=== PATIENT | male | born 1990 | race Two or more races ===

== ENCOUNTER 2024-10-13 13:32 | Emergency (ER) | payer BC, OTHER ==
[~2024-10-13] VITALS: Ht 185.4 cm; Wt 110.0 kg
[2024-10-13 13:47] VITALS: BP 154/100; PULSE 78; RESP 15; O2SAT 98
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
[2024-10-13 14:14] LABS: Basophils # (auto) 0.1 10 ^3/uL (0-0.2); Basophils % (auto) 1.1 % (0.0-2.0); Eosinophils # (auto) 0.3 10 ^3/uL (0-0.8); Eosinophils % (auto) 2.9 % (0.0-7.0); Hemoglobin 17.5 g/dL (13.5-17.5); Lymphocytes # (auto) 1.7 10 ^3/uL (0.4-5.4); Mean Corpuscular Hemoglobin 31.4 pg (28.0-32.0); Mean Corpuscular Volume 89.8 fL (80.0-100.0); Monocytes # (auto) 0.7 10 ^3/uL (0-1.3); Monocytes % (auto) 7.3 % (0.0-12.0); Neutrophils # (auto) 6.7 10 ^3/uL (1.6-8.6); Neutrophils % (auto) 70.7 % (37.0-80.0); Nucleated Red Blood Cells % 0.1 %; Platelet Count (auto) 347 10^3/uL (140-450); Red Blood Cells 5.56 10^6/uL (4.5-5.90); Red Cell Distribution Width 12.9 % (11.8-14.3); White Blood Cell 9.5 10^3/uL (4.4-10.8)
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
[2024-10-13 14:33] LABS: Carbon Dioxide 27 mmol/L (20-31)
[2024-10-13 14:34] LABS: Calcium 10.2 mg/dL (8.7-10.4)
[2024-10-13 15:18] LABS: Anion Gap 9 (5-15); Blood Urea Nitrogen 26 mg/dL (9-23); Chloride 94 mmol/L (98-107); Potassium 5.3 mmol/L (3.5-5.1); Sodium 130 mmol/L (136-145)
[2024-10-13 15:20] LABS: Glucose 489 mg/dL (74-106)
[2024-10-13] MEDS: ONDANSETRON HCL 4 MG/2 ML VIAL IV ONE (15:23)
[2024-10-13] MEDS: SODIUM CHLORIDE 0.9% 1,000 ML IV ONE (15:23)
[2024-10-13] MEDS: MORPHINE SULFATE 4 MG/ML SYR/VIAL IV ONE (15:23)
== END 2024-10-13 15:52 | disposition left against medical advice (07) ==
LOC: EDBD 13:32 → ER 13:32
DX: R07.89 Other chest pain (principal); V43.62XA Car passenger injured in collision with other type car in traffic accident, initial encounter; Y93.I9 Activity, other involving external motion; Y92.488 Other paved roadways as the place of occurrence of the external cause; Y99.8 Other external cause status
CPT/HCPCS: 36415; 71045; 80048; 85025; 96360; 99284; J7030

== ENCOUNTER 2025-02-10 19:14 | Inpatient (IN) | payer BC, MEDICAID, OTHER ==
[~2025-02-10] VITALS: Ht 185.4 cm; Wt 127.0 kg
--- NOTE | 2025-02-10 19:56 | ED.PDOC ---
General HPI Comments 34y M who presents to the ED for chief complaint of genitourinary pain. Pt states over the past 2 days, he has been having pain and swelling by the head of his penis.Pt denies any associated dysuria or penile discharge. Pt states he is otherwise diabetic and states he has not been taking his DM medications for many years. Pt otherwise denies any associated symptoms. Time Seen by MD: 19:54 Reviewed notes: Medications, Allergies Allergies: Coded Allergies: NO KNOWN ALLERGIES (Unverified , 10/13/24) Information Source: Patient Mode of Arrival: Ambulatory Past Medical History PAST MEDICAL HISTORY: DM Surgical History: Denies all surgeries Family History Family History: Unknown Social History Smoker: Non-Smoker Alcohol: Denies ETOH Use Drugs: Denies Drug Use Lives In: Home Constitutional: denies: chills, diaphoresis, fatigue, fever, malaise, sweats, weakness, others EENTM: denies: blurred vision, double vision, ear bleeding, ear discharge, ear drainage, ear pain, ear ringing, eye pain, eye redness, hearing loss, mouth pain, mouth swelling, nasal discharge, nose bleeding, nose congestion, nose pain, photophobia, tearing, throat pain, throat swelling, voice changes, others Respiratory: denies: cough, hemoptysis, orthopnea, SOB at rest, shortness of breath, SOB with excertion, stridor, wheezing, others Cardiovascular: denies: chest pain, dizzy spells, diaphoresis, Dyspnea on exertion, edema, irregular heart beat, left arm pain, lightheadedness, palpi tations, PND, syncope, others Gastrointestinal: denies: abdomen distended, abdominal pain, blood streaked bowels, constipated, diarrhea, dysphagia, difficulty swallowing, hematemesis, melena, nausea, poor appetite, poor fluid intake, rectal bleeding, rectal pain, vomiting, others Genitourinary: reports: pain (penile pain); denies: burning, dysuria, flank pain, frequency, hematuria, incontinence, penile discharge, penile sore, testicle pain, testicle swelling, urgency, others Neurological: denies: dizziness, fainting, headache, left sided numbness, left sided weakness, numbness, paresthesia, pre-existing deficit, right sided numbness, right sided weakness, seizure, speech problems, tingling, tremors, weakness, others Musculoskeletal: denies: back pain, gout, joint pain, joint swelling, muscle pain, muscle stiffness, neck pain, others Integumetry: denies: bruises, change in color, change in hair/nails, dryness, laceration, lesions, lumps, rash, wounds, others Allergic/Immunocompromised: denies: Difficulty Healing, Frequent Infections, Hives, Itching, others Hematologic/Lymphatic: denies: anemia, blood clots, easy bleeding, easy bruising, swollen glands, others Endocrine: denies: excessive hunger, excessive sweating, excessive thirst, excessive urination, flushing, intolerance to cold, intolerance to heat, unexplained weight gain, unexplained weight loss, others Psychiatric: denies: anxiety, bipolar disorder, depression, hopeless, panic disorder, schizophrenia, sleepless, suicidal, others All Other Systems: Reviewed and Negative Physical Exam General Appearance: Mild Distress HEENT: Pharynx Normal Neck: Normal Inspection Respiratory: No Respiratory Distress Cardiovascular: Tachycardia Breast Exam: Deferred Gastrointestinal: No Organomegaly Genitalia: Other (Whitish discharge around the glans penis) Pelvic: Deferred Rectal: Deferred Extremities: Non-tender Neurologic: No Motor Deficits Cerebellar Function: NOT DONE Reflexes: NOT DONE Skin: Pallor Lymphatic: NOT DONE Was a procedure done? Was a procedure done?: No Differential Diagnosis Kidney stone (Female): N/A Penile/Scrotal: Epidiymitis, Prostatitis, STD, UTI, Other (cellulitis, ) X-Ray, Labs, Meds, VS Lab Test 02/10/25 20:08 02/10/25 19:52 02/10/25 19:43 Range/Units Urine Color Light-yellow Yellow Urine Clarity Clear Clear Urine pH 6.0 5.0-9.0 Urine Specific Lamar 1.026 1.001-1.035 Urine Protein 1+ H Negative Urine Ketones Trace Negative Urine Blood 1+ H Negative /uL Urine Nitrite Negative Negative Urine Bilirubin Negative Negative Urine Urobilinogen Normal Negative mg/dL Urine Leukocyte Esterase 3+ Negative /uL Urine RBC 31 0 - 3 /hpf Urine Microscopic WBC 63 H 0-3 /HPF Urine Squamous Epithelial Cells Few <5 /hpf Urine Bacteria None seen None Seen /hpf Urine Yeast (Budding) Occasional None Seen /hpf Urine Glucose 4+ H Normal mg/dL Chlamydia trachomatis (DERRICK) Pending Neisseria gonorrhoeae (DERRICK) Pending White Blood Count 9.4 4.4-10.8 10^3/uL Red Blood Count 5.42 4.5-5.90 10^6/uL Hemoglobin 17.2 13.5-17.5 g/dL Hematocrit 48.3 41.0-53.0 % Mean Corpuscular Volume 89.1 80.0-100.0 fL Mean Corpuscular Hemoglobin 31.7 28.0-32.0 pg Mean Corpuscular Hemoglobin Concent 35.6 32.0-36.0 g/dL Red Cell Distribution Width 12.0 11.8-14.3 % Platelet Count 322 140-450 10^3/uL Mean Platelet Volume 6.4 L 6.9-10.8 fL Neutrophils (%) (Auto) 68.3 37.0-80.0 % Lymphocytes (%) (Auto) 19.3 10.0-50.0 % Monocytes (%) (Auto) 10.2 0.0-12.0 % Eosinophils (%) (Auto) 0.9 0.0-7.0 % Basophils (%) (Auto) 1.3 0.0-2.0 % Neutrophils # (Auto) 6.4 1.6-8.6 10 ^3/uL Lymphocytes # (Auto) 1.8 0.4-5.4 10 ^3/uL Monocytes # (Auto) 1.0 0-1.3 10 ^3/uL Eosinophils # (Auto) 0.1 0-0.8 10 ^3/uL Basophils # (Auto) 0.1 0-0.2 10 ^3/uL Nucleated Red Blood Cells 0.5 % Sodium Level 130 L 136-145 mmol/L Potassium Level 4.4 3.5-5.1 mmol/L Chloride Level 96 L 98-107 mmol/L Carbon Dioxide Level 24 20-31 mmol/L Anion Gap 10 5-15 Blood Urea Nitrogen 16 9-23 mg/dL Creatinine 1.28 0.700-1.30 mg/dL Glomerular Filtration Rate Calc 76 >90 mL/min BUN/Creatinine Ratio 12.5 10.0-20.0 Serum Glucose 416 *H 74-106 mg/dL Calcium Level 10.4 8.7-10.4 mg/dL POC Glucose 396 H 70-106 mg/dl Current Medications Medications (Trade) Dose Ordered Sig/Tashi Route Start Time Stop Time Status Last Admin Acetaminophen/ Hydrocodone Bitart (K[place] 5/325MG Tab) 1 tab ONCE ONCE PO 02/10/25 20:00 02/10/25 20:01 DC 02/10/25 20:48 Clotrimazole (Lotrimin 1% Cream) 1 applic ONCE ONCE TOP 02/10/25 20:00 02/10/25 20:01 DC 02/10/25 20:48 Time of 1ST Reevaluation: 20:30 Reevaluation 1ST: Unchanged Patient Education/Counseling: Diagnosis, Treatment Family Education/Counseling: No Family Present Departure 1 Departure Time of Disposition: 20:54 (Patient with a uncontrolled diabetes and balanitis. We will admit patient to the hospital further workup and expert consultation) Impression: Primary Impression: Uncontrolled diabetes mellitus Qualified Codes: E11.65 - Type 2 diabetes mellitus with hyperglycemia Additional Impression: Balanitis Disposition: ADMITTED INPATIENT Admit to: Med Surg Condition: Serious Critical Care Note Critical Care Time?: No Stability Stability form required: No Heart Score Heart Score: Heart Score Response (Comments) Value History N/A 0 EKG N/A 0 Age N/A 0 Risk Factors N/A 0 Troponin N/A 0 Total 0 I personally scribed for JADA SOLIZ MD ([email or web address]) on 02/10/25 at 19:56. Electronically submitted by Loly Cline ([email or web address]). JADA SOLIZ MD Feb 10, 2025 19:56
[2025-02-10 20:06] LABS: Basophils # (auto) 0.1 10 ^3/uL (0-0.2); Basophils % (auto) 1.3 % (0.0-2.0); Eosinophils # (auto) 0.1 10 ^3/uL (0-0.8); Eosinophils % (auto) 0.9 % (0.0-7.0); Hematocrit 48.3 % (41.0-53.0); Hemoglobin 17.2 g/dL (13.5-17.5); Lymphocytes # (auto) 1.8 10 ^3/uL (0.4-5.4); Lymphocytes % (auto) 19.3 % (10.0-50.0); Mean Corpuscular Hemoglobin 31.7 pg (28.0-32.0); Mean Corpuscular Hgb Conc. 35.6 g/dL (32.0-36.0); Mean Corpuscular Volume 89.1 fL (80.0-100.0); Monocytes % (auto) 10.2 % (0.0-12.0); Neutrophils # (auto) 6.4 10 ^3/uL (1.6-8.6); Neutrophils % (auto) 68.3 % (37.0-80.0); Nucleated Red Blood Cells % 0.5 %; Platelet Count (auto) 322 10^3/uL (140-450); Red Blood Cells 5.42 10^6/uL (4.5-5.90); White Blood Cell 9.4 10^3/uL (4.4-10.8)
[2025-02-10 20:10] LABS: Urine Bacteria None Seen /hpf (None Seen)
[2025-02-10 20:13] LABS: Potassium 4.4 mmol/L (3.5-5.1)
[2025-02-10 20:14] LABS: Anion Gap 10 (5-15); Carbon Dioxide 24 mmol/L (20-31)
[2025-02-10 20:15] LABS: Sodium 130 mmol/L (136-145)
[2025-02-10 20:16] LABS: Calcium 10.4 mg/dL (8.7-10.4); Chloride 96 mmol/L (98-107)
[2025-02-10 20:19] LABS: BUN/Creatinine Ratio 12.5 (10.0-20.0); Blood Urea Nitrogen 16 mg/dL (9-23)
[2025-02-10 20:23] LABS: Glucose 416 mg/dL (74-106)
[2025-02-10 20:24] LABS: Urine Blood 1+ /uL (Negative); Urine Budding Yeast OCCASIONAL /hpf (None Seen); Urine Clarity Clear (Clear); Urine Color Light-Yellow (Yellow); Urine Protein, UAD 1+ (Negative); Urine Specific Gravity 1.026 (1.001-1.035); Urine Squamous Epithelial Cell FEW /hpf (<5); Urine Urobilinogen Normal (Negative); Urine WBC 63 /HPF (0-3)
[2025-02-10] MEDS: HYDROcodone-ACET 5/325MG TAB PO ONE (20:48)
[2025-02-10] MEDS: CLOTRIMAZOLE 1 % CREAM 15GM TOP ONE (20:48)
[2025-02-10] MEDS: SODIUM CHLORIDE 0.9% 1,000 ML IV ONE ×2 (21:11→22:57)
[2025-02-10] MEDS ORDERED: CLINDAMYCIN 600MG IV 50 ML IV ONE (22:45)
[2025-02-10] MEDS ORDERED: PIPERACILLIN-TAZOB 3.375GM 100 ML IV ONE (22:45)
[2025-02-10] MEDS: INSULIN LANTUS (GLARGINE) 1 /0.01ml (100units/ml) SC ONE (23:02)
--- NOTE | 2025-02-10 23:05 | DVH ---
SCROTAL ULTRASOUND REASON FOR EXAM: epididmyitis, torison. Penile pain. COMPARISON: None TECHNIQUE: Real-time sector scans and duplex color flow Doppler imaging of the scrotal contents was performed. FINDINGS: The right testicle measures 3.1 x 2.0 x 2.5 cm. The left testicle measures 3.4 x 1.7 x 2.1 cm. No testicular mass is identified. Flow was seen within the right and left testicle. There is no hypere jaycob. There is no evidence of hydrocele nor varicocele identified. The left epididymis is of normal size, shape and contour. The right epididymis is not seen. IMPRESSION: Normal appearance of both testes. No evidence of torsion. The right epididymis is not seen.
[2025-02-10] MEDS: DOXYCYCLINE 100 MG TAB/CAP PO ONE (23:08)
[2025-02-10] MEDS: cefTRIAXone 1GM/50ML D5W 50 ML IV ONE (23:13)
--- NOTE | 2025-02-10 23:44 | DVH ---
History: scrotal swelling, bhumika gangrene Comparison Study: None Technique: Multidetector spiral CT of the pelvis was performed from iliac crests to pubic symphysis. No intravenous contrast was administered. Axial, coronal and sagittal multiplanar reformats were pe rformed by the technologist on a separate workstation. Radiation Dose : CT Dose: CTDI volume is 37 mGy. Dose-length product is 1819 mGy*cm Findings: Visualized bowel: Small bowel and colon are normal in caliber and distribution. The appendix is not visualized; however, no secondary findings of acute appendicitis identified. Ascites: Absent Lymphadenopathy: No pelvic or mesenteric lymphadenopathy is identified by size criteria. There are s ubcentimeter lymph nodes bilaterally in the pelvis. There are more prominent lymph nodes in both groi ns, the largest measuring 1.6 cm in short axis in the left groin. Pelvis Wall and Mesentery: Unremarkable. Pelvic Organs: Unremarkable Musculoskeletal: No aggressive focal bony lesions, acute fractures or dislocation. Bladder: Unremarkable Other: No gas is identified within the soft tissues of the groin. No fluid collection is identified. IMPRESSION: No fluid collection or free air in the pelvis or in the soft tissues. No CT evidence for Bhumika's gangrene. Mildly prominent lymph nodes in the groin and pelvis, likely reactive.
[2025-02-11] VITALS (7 sets, daily range): BP systolic 136–145; BP diastolic 87–97; PULSE 83–95; RESP 14–20; TEMP 97.7–97.8; O2SAT 92–99
[2025-02-11] MEDS: HYDROcodone-ACET 5/325MG TAB PO PRN (01:51)
[2025-02-11] MEDS ORDERED: DEXTROSE (50%) 50ML SYRG IV PRN (02:45)
--- NOTE | 2025-02-11 04:03 | DVHPNRES ---
Progress Note Date Seen: Feb 11, 2025 Resident Creating Document: A Medical Necessity Reason Pt with a Central, PICC or Fol: No Objective vital signs Vital Sign Date Time Temp Pulse Resp B/P (MAP) Pulse Ox O2 Delivery O2 Flow Rate FiO2 02/11/25 03:24 98.1 76 18 118/68 (85) 96 98.1 02/11/25 00:54 Room Air* 0 21 Total Intake and Output 02/10/25 02/10/25 02/11/25 15:00 23:00 07:00 Intake Total 1000 ml 1050 ml Balance 1000 ml 1050 ml medications Current Medications Medications Dose Ordered Sig/Tashi Route Start Time Stop Time Status Last Admin Dose Admin Insulin Glargine 20 units HS SC 02/11/25 22:00 Ceftriaxone Sodium 50 ml @ 100 mls/hr DAILY@09 IV 02/11/25 09:00 Doxycycline Monohydrate 100 mg Q12HR PO 02/11/25 10:00 Acetaminophen/ Hydrocodone Bitart 1 tab Q6HPRN PRN PO 02/11/25 01:45 02/11/25 01:51 1 TAB Diagnostic Test (Pha) 1 strip Q6HR 02/11/25 06:00 Insulin Human Regular Q6HR SC 02/11/25 06:00 Dextrose 50 ml UD PRN IV 02/11/25 02:45 laboratory and microbiology Laboratory Tests 02/10/25 19:52 Test 02/10/25 19:52 Range/Units Serum Glucose 416 *H 74-106 mg/dL My Orders My Orders Orders - ANGUS PIÑA RESIDENT Procedure Category Date Status Time Wound Culture W/ Gs CHANDU 02/10/25 In Process 21:56 Admit ADMIT 02/10/25 Transmitted 21:59 Insulin Lantus PHA 02/11/25 In Process (Glargine) (Lantus) 22:00 Complete Blood Count LAB 02/11/25 Logged 04:00 Comprehensive LAB 02/11/25 Logged Metabolic Panel 04:00 Urine Bacterial CHANDU 02/10/25 In Process Culture 22:09 Testicular Ultrasound US 02/10/25 Resulted 22:[address] 02/10/25 Resulted 22:26 Ceftriaxone 1gm/50ml PHA 02/11/25 In Process D5w (Rocephin) 09:00 Doxycycline Tablet PHA 02/11/25 In Process (Vibramycin Tablet) 10:00 Hydrocodone-Acet PHA 02/11/25 In Process 5/325mg Tab ([place] 01:45 Glucose Blood PHA 02/11/25 In Process (Accu-Chek Comfort 06:00 Insulin R (Human) PHA 02/11/25 In Process (Insulin R) 06:00 Dextrose 50% Syringe PHA 02/11/25 In Process 02:45 * Urology Consult CONS 02/11/25 Transmitted 02:40 ANGUS PIÑA RESIDENT Feb 11, 2025 04:03
--- NOTE | 2025-02-11 04:26 | DVHHPRES ---
History of Present Illness Resident Creating Document: AYANANEREYDASERJIO RESIDENT History of Present Illness Patient is a 34-year-old male with past medical history of type 2 diabetes mellitus presented to the ED with a chief complaint of penile pain, swelling and discharge. Patient reported fell Saturday was only fine when he noticed a rash on his penis which progressed to swelling and pain. Patient reported noticing a discharged later of whitish yellow in color and was unable to retract the foreskin of his penis, had severe pain the penis and the suprapubic area, had associated fever with sweating but denied chills. Patient reports to be in a monogamous relationship with his fiancee and does not report her to be having any vaginal discharge. Past medical history: Type 2 diabetes mellitus diagnosed about 2 years ago but not on any medication Past surgical history: None Social history: Patient denies smoking, alcohol, drug use No home medication Review of Systems Review of Systems Seen and examined at the bedside Reports of pain in the scrotal, penile and suprapubic area and has difficulty ambulating due to the pain No Fever, chills Allergies: Coded Allergies: NO KNOWN ALLERGIES (Unverified , 10/13/24) Medications Current Medications Medications Dose Ordered Sig/Tashi Route Start Time Stop Time Status Last Admin Dose Admin Insulin Glargine 20 units HS SC 02/11/25 22:00 Ceftriaxone Sodium 50 ml @ 100 mls/hr DAILY@09 IV 02/11/25 09:00 Doxycycline Monohydrate 100 mg Q12HR PO 02/11/25 10:00 Acetaminophen/ Hydrocodone Bitart 1 tab Q6HPRN PRN PO 02/11/25 01:45 02/11/25 01:51 1 TAB Diagnostic Test (Pha) 1 strip Q6HR 02/11/25 06:00 Insulin Human Regular Q6HR SC 02/11/25 06:00 Dextrose 50 ml UD PRN IV 02/11/25 02:45 Exam Vital Signs Vital Signs Date Time Temp Pulse Resp B/P (MAP) Pulse Ox O2 Delivery O2 Flow Rate FiO2 02/11/25 04:00 93 02/11/25 03:24 98.1 18 118/68 (85) 96 98.1 02/11/25 00:54 Room Air* 0 21 Exam Gen - no pallor, no icterus, no cyanosis, no clubbing, no LAD, no edema . Skin - Patients skin is warm and dry. HEENT - normocephalic, atraumatic, moist mucous membranes. Neck - full ROM, no LAD, no JVD Pulmonary - B/L equal breath sounds, no crackles, no wheezing, no stridor. cardiovascular - regular S1,S2 heard, no added sounds, no murmurs heard. peripheral pulses normal radial 2+, pedal 2+. capillary refill normal <2 secs. GI - soft, nontender abdomen. no hepatospleenomegaly. Bowel sounds normoactive - retracted penis with the swelling and whitish thick discharge, no scrotal swelling noted, bilateral testes palpable, no hydrocele, erythema with the whole scrotal and penile area Neurological - Patient is A/O X 3 . Bilateral upper extremity strength 5/5, bilateral lower extremity strength 5/5, no facial droop, normal speech, no tremor, no sensory deficiets. Labs/Xrays Labs Test 02/10/25 23:01 02/10/25 22:31 02/10/25 20:08 02/10/25 19:52 Range/Units POC Glucose 466 *H 70-106 mg/dl Lactic Acid Level 1.7 0.4-2.0 mmol/L Urine Color Light-yellow Yellow Urine Clarity Clear Clear Urine pH 6.0 5.0-9.0 Urine Specific [place] 1.026 1.001-1.035 Urine Protein 1+ H Negative Urine Ketones Trace Negative Urine Blood 1+ H Negative /uL Urine Nitrite Negative Negative Urine Bilirubin Negative Negative Urine Urobilinogen Normal Negative mg/dL Urine Leukocyte Esterase 3+ Negative /uL Urine RBC 31 0 - 3 /hpf Urine Microscopic WBC 63 H 0-3 /HPF Urine Squamous Epithelial Cells Few <5 /hpf Urine Bacteria None seen None Seen /hpf Urine Yeast (Budding) Occasional None Seen /hpf Urine Glucose 4+ H Normal mg/dL White Blood Count 9.4 4.4-10.8 10^3/uL Red Blood Count 5.42 4.5-5.90 10^6/uL Hemoglobin 17.2 13.5-17.5 g/dL Hematocrit 48.3 41.0-53.0 % Mean Corpuscular Volume 89.1 80.0-100.0 fL Mean Corpuscular Hemoglobin 31.7 28.0-32.0 pg Mean Corpuscular Hemoglobin Concent 35.6 32.0-36.0 g/dL Red Cell Distribution Width 12.0 11.8-14.3 % Platelet Count 322 140-450 10^3/uL Mean Platelet Volume 6.4 L 6.9-10.8 fL Neutrophils (%) (Auto) 68.3 37.0-80.0 % Lymphocytes (%) (Auto) 19.3 10.0-50.0 % Monocytes (%) (Auto) 10.2 0.0-12.0 % Eosinophils (%) (Auto) 0.9 0.0-7.0 % Basophils (%) (Auto) 1.3 0.0-2.0 % Neutrophils # (Auto) 6.4 1.6-8.6 10 ^3/uL Lymphocytes # (Auto) 1.8 0.4-5.4 10 ^3/uL Monocytes # (Auto) 1.0 0-1.3 10 ^3/uL Eosinophils # (Auto) 0.1 0-0.8 10 ^3/uL Basophils # (Auto) 0.1 0-0.2 10 ^3/uL Nucleated Red Blood Cells 0.5 % Sodium Level 130 L 136-145 mmol/L Potassium Level 4.4 3.5-5.1 mmol/L Chloride Level 96 L 98-107 mmol/L Carbon Dioxide Level 24 20-31 mmol/L Anion Gap 10 5-15 Blood Urea Nitrogen 16 9-23 mg/dL Creatinine 1.28 0.700-1.30 mg/dL Glomerular Filtration Rate Calc 76 >90 mL/min BUN/Creatinine Ratio 12.5 10.0-20.0 Serum Glucose 416 *H 74-106 mg/dL Hemoglobin A1c 13.0 H <5.7 % A1C Calcium Level 10.4 8.7-10.4 mg/dL Treponema pallidum Antibody Non-reactive Negative HIV (1&2) Antibody Negative Negative Assessment/Plan Assessment/Plan Balanitis Possible urethritis Possible phimosis UTI - testicular ultrasound showed normal appearance of both testes, no evidence of torsion, normal left epididymis, right epididymis not seen - pelvic CT showed no fluid collection or free air in the pelvis or in the soft tissues, no evidence of Mesha's gangrene, mildly prominent lymph nodes in the groin and pelvis likely reactive - treponema palladium antibody nonreactive - HIV negative - chlamydia and gonorrhea pending - culture from penis pending - urine culture pending - IV ceftriaxone and p.o. doxycycline - urology consult Uncontrolled type 2 diabetes mellitus with hyperglycemia - HbA1c 13% - patient is insulin naive and started insulin Lantus 20 units - moderate insulin sliding scale Goals of care discussed with the patient for over 27 minutes. Full code Time spent: 39 minutes Plan discussed with Dr. Rebolledo Plan discussed with: Patient My Orders Orders - ANGUS PIÑA Procedure Category Date Status Time Wound Culture W/ Gs CHANDU 02/10/25 In Process 21:56 Admit ADMIT 02/10/25 Transmitted 21:59 Insulin Lantus PHA 02/11/25 In Process (Glargine) (Lantus) 22:00 Complete Blood Count LAB 02/11/25 Logged 04:00 Comprehensive LAB 02/11/25 Logged Metabolic Panel 04:00 Urine Bacterial CHANDU 02/10/25 In Process Culture 22:09 Testicular Ultrasound US 02/10/25 Resulted 22:[address] 02/10/25 Resulted 22:26 Ceftriaxone 1gm/50ml PHA 02/11/25 In Process D5w (Rocephin) 09:00 Doxycycline Tablet PHA 02/11/25 In Process (Vibramycin Tablet) 10:00 Hydrocodone-Acet PHA 02/11/25 In Process 5/325mg Tab ([place] 01:45 Glucose Blood PHA 02/11/25 In Process (Accu-Chek Comfort 06:00 Insulin R (Human) PHA 02/11/25 In Process (Insulin R) 06:00 Dextrose 50% Syringe PHA 02/11/25 In Process 02:45 * Urology Consult CONS 02/11/25 Transmitted 02:40 Date of Service: Feb 10, 2025 Billing Provider: JEANMARIE REBOLLEDO MD Common Visit Codes: [id number] INP/OBS CARE (HIGH) Secondary Visit Codes: [id number] CARE PLAN 30 MINUTES ANGUS PIÑA RESIDENT Feb 11, 2025 04:26
[2025-02-11] MEDS ORDERED: CLINDAMYCIN 600MG IV 50 ML IV SCH (06:00)
[2025-02-11] MEDS ORDERED: PIPERACILLIN-TAZOB 3.375GM 100 ML IV SCH (06:00)
[2025-02-11] MEDS: ACCU-CHEK COMFORT CURVE STRIP VI SCH (06:22)
[2025-02-11] MEDS: InsuLIN REG 1unit/0.01ml Soln (100units/ml) SC SCH (06:25)
[2025-02-11 06:36] LABS: Basophils # (auto) 0.1 10 ^3/uL (0-0.2); Basophils % (auto) 0.9 % (0.0-2.0); Eosinophils # (auto) 0.1 10 ^3/uL (0-0.8); Eosinophils % (auto) 1.4 % (0.0-7.0); Hematocrit 41.9 % (41.0-53.0); Hemoglobin 14.8 g/dL (13.5-17.5); Lymphocytes # (auto) 1.5 10 ^3/uL (0.4-5.4); Lymphocytes % (auto) 22.9 % (10.0-50.0); Mean Corpuscular Hemoglobin 31.6 pg (28.0-32.0); Mean Corpuscular Hgb Conc. 35.4 g/dL (32.0-36.0); Mean Corpuscular Volume 89.2 fL (80.0-100.0); Monocytes # (auto) 0.9 10 ^3/uL (0-1.3); Neutrophils # (auto) 4.1 10 ^3/uL (1.6-8.6); Neutrophils % (auto) 61.8 % (37.0-80.0); Nucleated Red Blood Cells % 0.2 %; Platelet Count (auto) 270 10^3/uL (140-450); White Blood Cell 6.7 10^3/uL (4.4-10.8)
[2025-02-11 06:48] LABS: Alanine Aminotransferase 24 U/L (7-40); Albumin 3.9 g/dL (3.2-4.8); Alkaline Phosphatase 114 U/L (46-116); Anion Gap 7 (5-15); Aspartate Aminotransferase 16 U/L (13-40); BUN/Creatinine Ratio 15.3 (10.0-20.0); Bilirubin, Total 0.5 mg/dL (0.2-1.0); Blood Urea Nitrogen 15 mg/dL (9-23); Calcium 9.5 mg/dL (8.7-10.4); Carbon Dioxide 25 mmol/L (20-31); Chloride 104 mmol/L (98-107); Potassium 4.1 mmol/L (3.5-5.1); Sodium 136 mmol/L (136-145); Total Protein 6.8 g/dL (5.7-8.2)
[2025-02-11 06:53] LABS: Glucose 269 mg/dL (74-106)
[2025-02-11 08:33] LABS: Amphetamine Screen, Urine Neg (NEGATIVE); Barbiturate Scree,Urine Neg (NEGATIVE); Benzodiazephine Screen, Urine Neg (NEGATIVE); Cannabinoid Screen, Urine Neg (NEGATIVE); Cocaine Screen, Urine Neg (NEGATIVE); Opiate Scree,Urine Neg (NEGATIVE); Phencyclidine Screen, Urine Neg (NEGATIVE)
[2025-02-11] MEDS: cefTRIAXone 1GM/50ML D5W 50 ML IV SCH (08:45)
[2025-02-11] MEDS: DOXYCYCLINE 100 MG TAB/CAP PO SCH (09:33)
--- NOTE | 2025-02-11 14:23 | DVHINCON2 ---
Date of service: Feb 11, 2025 Referring Physician Hospitalist Reason for Consultation Phimosis Balanitis History of Present Illness 34y M who presents to the ED for chief complaint of genitourinary pain. Pt states over the past 2 days, he has been having pain and swelling by the head of his penis.Pt denies any associated dysuria or penile discharge. Pt states he is otherwise diabetic and states he has not been taking his DM medications for many years. Pt otherwise denies any associated symptoms. Reviewed notes: Medications, Allergies Allergies: Coded Allergies: NO KNOWN ALLERGIES (Unverified , 10/13/24) Information Source: Patient Mode of Arrival: Ambulatory Past Medical History DM Past Surgical History Denies all surgeries Family History: Patient reports no known family medical history. Allergies: Coded Allergies: NO KNOWN ALLERGIES (Unverified , 10/13/24) Home Meds No Active Prescriptions or Reported Meds Current Medications Current Medications Medications (Trade) Dose Ordered Sig/Tashi Route PRN Reason Start Time Stop Time Status Last Admin Insulin Glargine (Lantus) 20 units HS SC 02/11/25 22:00 Piperacillin Sod/ Tazobactam Sod 100 ml @ 25 mls/hr Q8HR IV 02/11/25 06:00 02/10/25 22:54 DC Clindamycin Phosphate 50 ml @ 50 mls/hr Q8HR IV 02/11/25 06:00 02/10/25 23:14 DC Ceftriaxone Sodium 50 ml @ 100 mls/hr DAILY@09 IV 02/11/25 09:00 02/11/25 08:45 Doxycycline Monohydrate (Vibramycin Tablet) 100 mg Q12HR PO 02/11/25 10:00 02/11/25 09:33 Acetaminophen/ Hydrocodone Bitart ([place] 5/325MG Tab) 1 tab Q6HPRN PRN PO MODERATE PAIN (4-6 PAIN SCALE) 02/11/25 01:45 02/11/25 12:30 Diagnostic Test (Pha) (Accu-Chek Comfort Curve T) 1 strip Q6HR 02/11/25 06:00 02/11/25 12:30 Insulin Human Regular (InsuLIN R) Q6HR SC 02/11/25 06:00 02/11/25 13:13 DC 02/11/25 12:31 Dextrose 50 ml UD PRN IV Blood Sugar LESS THAN 60 02/11/25 02:45 Insulin Human Lispro (HumaLOG) 6 units [facility] 02/11/25 17:00 Insulin Human Lispro (HumaLOG) [facility] 02/11/25 17:00 Review of Systems Constitutional: denies: chills, diaphoresis, fatigue, fever, malaise, sweats, weakness, others EENTM: denies: blurred vision, double vision, ear bleeding, ear discharge, ear drainage, ear pain, ear ringing, eye pain, eye redness, hearing loss, mouth pain, mouth swelling, nasal discharge, nose bleeding, nose congestion, nose pain, photophobia, tearing, throat pain, throat swelling, voice changes, others Respiratory: denies: cough, hemoptysis, orthopnea, SOB at rest, shortness of breath, SOB with excertion, stridor, wheezing, others Cardiovascular: denies: chest pain, dizzy spells, diaphoresis, Dyspnea on exertion, edema, irregular heart beat, left arm pain, lightheadedness, palpitations, PND, syncope, others Gastrointestinal: denies: abdomen distended, abdominal pain, blood streaked bowels, constipated, diarrhea, dysphagia, difficulty swallowing, hematemesis, melena, nausea, poor appetite, poor fluid intake, rectal bleeding, rectal pain, vomiting, others Genitourinary: reports: pain (penile pain); denies: burning, dysuria, flank pain, frequency, hematuria, incontinence, penile discharge, penile sore, testicle pain, testicle swelling, urgency, others Neurological: denies: dizziness, fainting, headache, left sided numbness, left sided weakness, numbness, paresthesia, pre-existing deficit, right sided numbness, right sided weakness, seizure, speech problems, tingling, tremors, weakness, others Musculoskeletal: denies: back pain, gout, joint pain, joint swelling, muscle pain, muscle stiffness, neck pain, others Integumetry: denies: bruises, change in color, change in hair/nails, dryness, laceration, lesions, lumps, rash, wounds, others Allergic/Immunocompromised: denies: Difficulty Healing, Frequent Infections, Hives, Itching, others Hematologic/Lymphatic: denies: anemia, blood clots, easy bleeding, easy bruis ing, swollen glands, others Endocrine: denies: excessive hunger, excessive sweating, excessive thirst, exc essive urination, flushing, intolerance to cold, intolerance to heat, unexplained weight gain, unexplained weight loss, others Psychiatric: denies: anxiety, bipolar disorder, depression, hopeless, panic disorder, schizophrenia, sleepless, suicidal, others All Other Systems: Reviewed and Negative Vital Signs Vital Signs Date Time Temp Pulse Resp B/P (MAP) Pulse Ox O2 Delivery O2 Flow Rate FiO2 02/11/25 11:59 97.7 83 18 145/97 (113) 99 97.7 02/11/25 07:15 Room Air* 0 21 Physical Exam General Appearance: Mild Distress HEENT: Pharynx Normal Neck: Normal Inspection Respiratory: No Respiratory Distress Cardiovascular: Tachycardia Breast Exam: Deferred Gastrointestinal: No Organomegaly Genitalia: large pubic fat pad. Hidden penis with partial phimosis. Extremities: Non-tender Neurologic: No Motor Deficits Cerebellar Function: NOT DONE Reflexes: NOT DONE Skin: Pallor Lymphatic: NOT DONE Labs/Diagnostic Data Labs Test 02/11/25 06:21 02/11/25 05:34 02/10/25 22:31 02/10/25 20:08 Range/Units POC Glucose 257 H 70-106 mg/dl White Blood Count 6.7 # 4.4-10.8 10^3/uL Red Blood Count 4.70 4.5-5.90 10^6/uL Hemoglobin 14.8 13.5-17.5 g/dL Hematocrit 41.9 # 41.0-53.0 % Mean Corpuscular Volume 89.2 80.0-100.0 fL Mean Corpuscular Hemoglobin 31.6 28.0-32.0 pg Mean Corpuscular Hemoglobin Concent 35.4 32.0-36.0 g/dL Red Cell Distribution Width 12.0 11.8-14.3 % Platelet Count 270 140-450 10^3/uL Mean Platelet Volume 6.6 L 6.9-10.8 fL Neutrophils (%) (Auto) 61.8 37.0-80.0 % Lymphocytes (%) (Auto) 22.9 10.0-50.0 % Monocytes (%) (Auto) 13.0 H 0.0-12.0 % Eosinophils (%) (Auto) 1.4 0.0-7.0 % Basophils (%) (Auto) 0.9 0.0-2.0 % Neutrophils # (Auto) 4.1 1.6-8.6 10 ^3/uL Lymphocytes # (Auto) 1.5 0.4-5.4 10 ^3/uL Monocytes # (Auto) 0.9 0-1.3 10 ^3/uL Eosinophils # (Auto) 0.1 0-0.8 10 ^3/uL Basophils # (Auto) 0.1 0-0.2 10 ^3/uL Nucleated Red Blood Cells 0.2 % Sodium Level 136 # 136-145 mmol/L Potassium Level 4.1 3.5-5.1 mmol/L Chloride Level 104 98-107 mmol/L Carbon Dioxide Level 25 20-31 mmol/L Anion Gap 7 5-15 Blood Urea Nitrogen 15 9-23 mg/dL Creatinine 0.98 0.700-1.30 mg/dL Glomerular Filtration Rate Calc 104 >90 mL/min BUN/Creatinine Ratio 15.3 10.0-20.0 Serum Glucose 269 #H 74-106 mg/dL Calcium Level 9.5 8.7-10.4 mg/dL Total Bilirubin 0.5 0.2-1.0 mg/dL Aspartate Amino Transferase (AST) 16 13-40 U/L Alanine Aminotransferase (ALT) 24 7-40 U/L Alkaline Phosphatase 114 46-116 U/L Troponin I High Sensitivity < 3 L </=54 ng/L Total Protein 6.8 5.7-8.2 g/dL Albumin 3.9 3.2-4.8 g/dL Lactic Acid Level 1.7 0.4-2.0 mmol/L Urine Color Light-yellow Yellow Urine Clarity Clear Clear Urine pH 6.0 5.0-9.0 Urine Specific [place] 1.026 1.001-1.035 Urine Protein 1+ H Negative Urine Ketones Trace Negative Urine Blood 1+ H Negative /uL Urine Nitrite Negative Negative Urine Bilirubin Negative Negative Urine Urobilinogen Normal Negative mg/dL Urine Leukocyte Esterase 3+ Negative /uL Urine RBC 31 0 - 3 /hpf Urine Microscopic WBC 63 H 0-3 /HPF Urine Squamous Epithelial Cells Few <5 /hpf Urine Bacteria None seen None Seen /hpf Urine Yeast (Budding) Occasional None Seen /hpf Urine Glucose 4+ H Normal mg/dL Urine Opiates Screen Neg NEGATIVE Urine Fentanyl Screen Neg NEGATIVE Urine Barbiturates Screen Neg NEGATIVE Urine Phencyclidine Screen Neg NEGATIVE Urine Amphetamines Screen Neg NEGATIVE Urine Benzodiazepines Screen Neg NEGATIVE Urine Cocaine Screen Neg NEGATIVE Urine Cannabinoids Screen Neg NEGATIVE Test 02/10/25 19:52 Range/Units Hemoglobin A1c 13.0 H <5.7 % A1C Treponema pallidum Antibody Non-reactive Negative HIV (1&2) Antibody Negative Negative Microbiology Date/Time Source Procedure Growth Status 02/10/25 20:08 Urine - Midstream Clean Catch Urine Culture - Preliminary Resulted Assessment Phimosis Balanitis Plan/Recommendation Antibiotic therapy Once infection has cleared, patient should undergo an elective circumcision as outpatient Plan discussed with: Patient, Other BRENT MASSEY MD Feb 11, 2025 14:23
[2025-02-11] MEDS: INSULIN LISPRO (HUMAN) 100 UNITS/ML ML SC SCH ×2 (17:16→17:17)
--- NOTE | 2025-02-11 19:22 | DVHPNRES ---
Progress Note Date Seen: Feb 11, 2025 Resident Creating Document: AME BURR RESDIENT Medical Necessity Reason Pt with a Central, PICC or Fol: No Subjective Review of Systems Patient seen and examined at the bedside. Patient is still complained of dysuria, and pain around genital area Patient reports: No new complaints Changes from previous H/P or p: No Changes Objective vital signs Vital Sign Date Time Temp Pulse Resp B/P (MAP) Pulse Ox O2 Delivery O2 Flow Rate FiO2 02/11/25 17:00 97.8 83 18 145/87 (106) 92 97.8 02/11/25 11:59 Room Air* 0 21 Total Intake and Output 02/10/25 02/10/25 02/11/25 15:00 23:00 07:00 Intake Total 1000 ml 1050 ml Balance 1000 ml 1050 ml medications Current Medications Medications Dose Ordered Sig/Tashi Route Start Time Stop Time Status Last Admin Dose Admin Insulin Glargine 20 units HS SC 02/11/25 22:00 Ceftriaxone Sodium 50 ml @ 100 mls/hr DAILY@09 IV 02/11/25 09:00 02/11/25 08:45 100 MLS/HR Doxycycline Monohydrate 100 mg Q12HR PO 02/11/25 10:00 02/11/25 09:33 100 MG Acetaminophen/ Hydrocodone Bitart 1 tab Q6HPRN PRN PO 02/11/25 01:45 02/11/25 12:30 1 TAB Diagnostic Test (Pha) 1 strip Q6HR 02/11/25 06:00 02/11/25 17:13 1 STRIP Dextrose 50 ml UD PRN IV 02/11/25 02:45 Insulin Human Lispro 6 units AC SC 02/11/25 17:00 02/11/25 17:17 6 UNITS Insulin Human Lispro AC SC 02/11/25 17:00 02/11/25 17:16 1 UNITS Examination General Appearance: Alert, Oriented X3, Cooperative, No acute distress HEENT: Atraumatic, PERRLA, EOMI, Mucous membrane moist/pink Respiratory: Clear to auscultation, Normal air movement Cardiovascular: Regular rate, Normal S1, Normal S2, No murmurs, no chest wall tenderness Abdominal: Normal bowel sounds, Soft, No tenderness, No hepatospenomegaly, No masses Extremities: No clubbing, No cyanosis, No edema, Normal pulses, No tenderness/swelling Skin: Multiple rashes on penile shaft, pubic area with swollen and and retractable foreskin Neuro: Normal gait, Normal speech, Strength at 5/5 X4 ext, Normal tone, Sensation intact, Cranial nerves 3-12 NL, Reflexes 2+ Psych/Mental Status: Mental status NL, Mood NL laboratory and microbiology Laboratory Tests 02/11/25 05:34 Test 02/11/25 05:34 Range/Units Serum Glucose 269 #H 74-106 mg/dL Microbiology Date/Time Source Procedure Growth Status 02/10/25 20:08 Urine - Midstream Clean Catch Urine Culture - Preliminary Resulted Labs and/or images reviewed: Image(s) reviewed by me Problem List/Assessment/Plan Problem List/Assessment/Plan Phimosis Balanitis Urethritis UTI Uncontrolled diabetic today's type 2 with hyperglycemia Obesity, grade 2 * testicular ultrasound showed normal appearance of both testes, no evidence of torsion, normal left epididymis, right epididymis not seen * pelvic CT showed no fluid collection or free air in the pelvis or in the soft tissues, no evidence of Mesha's gangrene, mildly prominent lymph nodes in the groin and pelvis likely reactive * treponema palladium antibody nonreactive * HIV negative * chlamydia and gonorrhea pending * culture from penis pending * urine culture pending Plan/recommendation Empiric antibiotic, doxycycline and Rocephin Consulted Urology, recommended elective circumcision once infection has cleared Lantus 20 units, lispro 60 units t.i.d., and moderate sliding scale IV fluid herpe DIET: Diabetic diet DVT PROPHYLAXIS: Lovenox CODE STATUS: Goal of care discussed for more than 18 minutes, full code DISPOSITION: Med/surge Patient's status and plan discussed with the patient. Case discussed with Dr. Ogden. Plan discussed with: Patient, Other (RN) My Orders My Orders Orders - AME BURR RESDIAPOORVA Procedure Category Date Status Time Acute Hepatitis Panel LAB 02/11/25 In Process 07:41 Insulin Lispro PHA 02/11/25 In Process (Human) (Humalog) 17:00 Date of Service: Feb 11, 2025 Billing Provider: MORGAN OGDEN MD Common Visit Codes: [id number] INP/OBS CARE(HIGH) AME BURR RESDIENT Feb 11, 2025 19:22 MORGAN OGDEN MD Feb 12, 2025 20:09
[2025-02-11] MEDS: INSULIN LANTUS (GLARGINE) 1 /0.01ml (100units/ml) SC SCH (21:52)
[2025-02-12 01:00] VITALS: BP 131/86; PULSE 85; RESP 19; TEMP 97.4; O2SAT 95
[2025-02-12] MEDS: KETOROLAC TROMETH 30 MG/ML 1ML VIAL IV ONE ×2 (02:03→16:45)
[2025-02-12] MEDS: ACETAMINOPHEN 325 MG TAB PO ONE (02:04)
[2025-02-12 05:00] VITALS: BP 130/93; PULSE 70; RESP 19; TEMP 97.3; O2SAT 96
[2025-02-12 07:22] LABS: Basophils # (auto) 0.1 10 ^3/uL (0-0.2); Basophils % (auto) 1.2 % (0.0-2.0); Eosinophils # (auto) 0.1 10 ^3/uL (0-0.8); Eosinophils % (auto) 2.1 % (0.0-7.0); Hematocrit 42.9 % (41.0-53.0); Hemoglobin 15.2 g/dL (13.5-17.5); Lymphocytes # (auto) 1.4 10 ^3/uL (0.4-5.4); Mean Corpuscular Hemoglobin 31.2 pg (28.0-32.0); Mean Corpuscular Hgb Conc. 35.3 g/dL (32.0-36.0); Mean Corpuscular Volume 88.4 fL (80.0-100.0); Monocytes # (auto) 0.6 10 ^3/uL (0-1.3); Monocytes % (auto) 12.1 % (0.0-12.0); Neutrophils # (auto) 2.9 10 ^3/uL (1.6-8.6); Neutrophils % (auto) 56.6 % (37.0-80.0); Nucleated Red Blood Cells % 0.1 %; Platelet Count (auto) 264 10^3/uL (140-450); Red Blood Cells 4.86 10^6/uL (4.5-5.90); Red Cell Distribution Width 12.2 % (11.8-14.3); White Blood Cell 5.1 10^3/uL (4.4-10.8)
[2025-02-12 07:24] LABS: Alanine Aminotransferase 22 U/L (7-40); Albumin 3.8 g/dL (3.2-4.8); Alkaline Phosphatase 105 U/L (46-116); Anion Gap 8 (5-15); Aspartate Aminotransferase 20 U/L (13-40); BUN/Creatinine Ratio 12.7 (10.0-20.0); Blood Urea Nitrogen 10 mg/dL (9-23); Carbon Dioxide 24 mmol/L (20-31); Chloride 103 mmol/L (98-107); Total Protein 6.7 g/dL (5.7-8.2)
[2025-02-12 07:25] LABS: Bilirubin, Total 0.6 mg/dL (0.2-1.0)
[2025-02-12 07:29] LABS: Glucose 183 mg/dL (74-106); Potassium 3.4 mmol/L (3.5-5.1); Sodium 135 mmol/L (136-145)
[2025-02-12] MEDS: INSULIN LISPRO (HUMAN) 100 UNITS/ML ML SC SCH (07:58)
[2025-02-12] MEDS: INSULIN LANTUS (GLARGINE) 1 /0.01ml (100units/ml) SC SCH (09:07)
[2025-02-12 09:24] VITALS: BP 129/97; PULSE 70; RESP 16; TEMP 98; O2SAT 97
[2025-02-12 10:39] LABS: Hepatitis B Surface Antigen Negative (Negative)
[2025-02-12 11:16] LABS: Hepatitis A Ab IgM Negative; Hepatitis B Core IgM Negative (Negative); Hepatitis C Antibody Negative (Negative)
[2025-02-12 12:49] VITALS: BP 136/84; PULSE 73; RESP 18; TEMP 99.1; O2SAT 97
[2025-02-12] MEDS: POTASSIUM EFFERVESENT TAB 25 MEQ PO ONE (14:56)
[2025-02-12 17:00] VITALS: BP 135/94; PULSE 84; RESP 18; TEMP 97.5; O2SAT 98
--- NOTE | 2025-02-12 19:04 | DVHPNRES ---
Progress Note Date Seen: Feb 12, 2025 Resident Creating Document: AME BURR RESDIENT Medical Necessity Reason Pt with a Central, PICC or Fol: No Subjective Review of Systems Patient seen and examined at bedside. Patient is feeling better since admission was still complained of penis, and scrotum discomfort. Patient reports: No new complaints, Feels better Changes from previous H/P or p: Changes Objective vital signs Vital Sign Date Time Temp Pulse Resp B/P (MAP) Pulse Ox O2 Delivery O2 Flow Rate FiO2 02/12/25 17:00 97.5 84 18 135/94 (108) 98 97.5 02/12/25 08:00 Room Air* 0 21 Total Intake and Output 02/11/25 02/11/25 02/12/25 15:00 23:00 07:00 Intake Total 290 ml 860 ml 980 ml Balance 290 ml 860 ml 980 ml medications Current Medications Medications Dose Ordered Sig/Tashi Route Start Time Stop Time Status Last Admin Dose Admin Ceftriaxone Sodium 50 ml @ 100 mls/hr DAILY@09 IV 02/11/25 09:00 02/12/25 09:00 100 MLS/HR Doxycycline Monohydrate 100 mg Q12HR PO 02/11/25 10:00 02/12/25 09:01 100 MG Acetaminophen/ Hydrocodone Bitart 1 tab Q6HPRN PRN PO 02/11/25 01:45 02/12/25 09:02 1 TAB Diagnostic Test (Pha) 1 strip Q6HR 02/11/25 06:00 02/12/25 17:24 1 STRIP Dextrose 50 ml UD PRN IV 02/11/25 02:45 Insulin Human Lispro AC SC 02/11/25 17:00 02/12/25 17:50 1 UNITS Insulin Glargine 24 units HS SC 02/12/25 06:45 02/12/25 09:07 24 UNITS Insulin Human Lispro 8 units AC SC 02/12/25 06:45 02/12/25 17:50 8 UNITS Examination General Appearance: Alert, Oriented X3, Cooperative, No acute distress HEENT: Atraumatic, PERRLA, EOMI, Mucous membrane moist/pink Respiratory: Clear to auscultation, Normal air movement Cardiovascular: Regular rate, Normal S1, Normal S2, No murmurs, no chest wall tenderness Abdominal: Normal bowel sounds, Soft, No tenderness, No hepatospenomegaly, No masses Extremities: No clubbing, No cyanosis, No edema, Normal pulses, No tenderness/swelling Skin: Multiple rashes on penile shaft, pubic area with swollen and and retractable foreskin Neuro: Normal gait, Normal speech, Strength at 5/5 X4 ext, Normal tone, Sensation intact, Cranial nerves 3-12 NL, Reflexes 2+ Psych/Mental Status: Mental status NL, Mood NL laboratory and microbiology Laboratory Tests 02/12/25 06:18 Test 02/12/25 06:18 Range/Units Serum Glucose 183 H 74-106 mg/dL Microbiology Date/Time Source Procedure Growth Status 02/10/25 22:00 Penis Gram Stain Pending Resulted 02/10/25 22:00 Penis Wound Culture - Preliminary Resulted 02/10/25 20:08 Urine - Midstream Clean Catch Urine Culture - Preliminary Resulted Labs and/or images reviewed: Labs reviewed by me, Image(s) reviewed by me Problem List/Assessment/Plan Problem List/Assessment/Plan Phimosis Balanitis Urethritis UTI Uncontrolled diabetic today's type 2 with hyperglycemia Obesity, grade 2 * testicular ultrasound showed normal appearance of both testes, no evidence of torsion, normal left epididymis, right epididymis not seen * pelvic CT showed no fluid collection or free air in the pelvis or in the soft tissues, no evidence of Mesha's gangrene, mildly prominent lymph nodes in the groin and pelvis likely reactive * treponema palladium antibody nonreactive * HIV negative * chlamydia and gonorrhea pending * culture from penis pending * urine culture pending Plan/recommendation Empiric antibiotic, doxycycline and Rocephin Consulted Urology, recommended elective circumcision once infection has cleared Lantus 24 units, lispro 8 units t.i.d., and moderate sliding scale IV fluid Herpes antibody Mupirocin around the penis and pubic area DIET: Diabetic diet DVT PROPHYLAXIS: Lovenox CODE STATUS: Goal of care discussed for more than 18 minutes, full code DISPOSITION: Med/surge Patient's status and plan discussed with the patient. Case discussed with Dr. Ogden. Plan discussed with: Patient, Other (RN) My Orders My Orders Orders - AME BURR RESDIAPOORVA Procedure Category Date Status Time Insulin Lantus PHA 02/12/25 In Process (Glargine) (Lantus) 06:45 Insulin Lispro PHA 02/12/25 In Process (Human) (Humalog) 06:45 Date of Service: Feb 12, 2025 Billing Provider: MORGAN OGDEN MD Common Visit Codes: [id number] INP/OBS CARE(HIGH) CASEYDARINJENNIFFERAME RODRIGUES Feb 12, 2025 19:04 MORGAN OGDEN MD Feb 12, 2025 20:20
[2025-02-12] MEDS ORDERED: MUPIROCIN 2% OINT 15gm or 22gm TOP ONE (19:15)
[2025-02-12 20:07] LABS: Chlamydia Trachomatis, NAA Negative (Negative); Neisseria gonorrhoeae, NAA Negative (Negative)
[2025-02-12 21:00] VITALS: BP 134/89; PULSE 80; RESP 18; TEMP 97.6; O2SAT 97
[2025-02-12] MEDS: MUPIROCIN 2% OINT 15gm or 22gm TOP SCH (22:02)
[2025-02-13 05:00] VITALS: BP 142/88; PULSE 78; RESP 19; TEMP 97.3; O2SAT 97
[2025-02-13 07:16] LABS: Basophils # (auto) 0 10 ^3/uL (0-0.2); Basophils % (auto) 0.8 % (0.0-2.0); Eosinophils # (auto) 0.1 10 ^3/uL (0-0.8); Eosinophils % (auto) 2.1 % (0.0-7.0); Hematocrit 40.9 % (41.0-53.0); Hemoglobin 14.5 g/dL (13.5-17.5); Lymphocytes # (auto) 1.9 10 ^3/uL (0.4-5.4); Lymphocytes % (auto) 29.7 % (10.0-50.0); Mean Corpuscular Hemoglobin 31.5 pg (28.0-32.0); Mean Corpuscular Hgb Conc. 35.4 g/dL (32.0-36.0); Mean Corpuscular Volume 88.9 fL (80.0-100.0); Monocytes # (auto) 0.8 10 ^3/uL (0-1.3); Neutrophils # (auto) 3.5 10 ^3/uL (1.6-8.6); Neutrophils % (auto) 55.4 % (37.0-80.0); Nucleated Red Blood Cells % 0.2 %; Platelet Count (auto) 260 10^3/uL (140-450); Red Cell Distribution Width 12.2 % (11.8-14.3); White Blood Cell 6.3 10^3/uL (4.4-10.8)
[2025-02-13 07:27] LABS: Alanine Aminotransferase 18 U/L (7-40); Albumin 3.7 g/dL (3.2-4.8); Alkaline Phosphatase 109 U/L (46-116); Anion Gap 9 (5-15); BUN/Creatinine Ratio 13.7 (10.0-20.0); Blood Urea Nitrogen 13 mg/dL (9-23); Calcium 9.5 mg/dL (8.7-10.4); Carbon Dioxide 26 mmol/L (20-31); Chloride 101 mmol/L (98-107); Glucose 256 mg/dL (74-106); Potassium 3.9 mmol/L (3.5-5.1); Sodium 136 mmol/L (136-145); Total Protein 6.5 g/dL (5.7-8.2)
[2025-02-13 07:28] LABS: Aspartate Aminotransferase 13 U/L (13-40); Bilirubin, Total 0.4 mg/dL (0.2-1.0)
[2025-02-13 08:00] VITALS: PULSE 89; RESP 20; O2SAT 97
[2025-02-13 09:00] VITALS: BP 130/92; PULSE 89; RESP 20; TEMP 96.8; O2SAT 97
[2025-02-13 13:00] VITALS: BP 147/104; PULSE 80; RESP 20; TEMP 97.4; O2SAT 97
--- NOTE | 2025-02-13 14:43 | DVHDSRES ---
Discharge Summary Date of Admission Resident Creating Document: AME BURR RESDIENT Feb 10, 2025 at 21:59 Date of Discharge: Feb 13, 2025 Admitting Diagnosis Phimosis Labs/Diagnostic Data: Laboratory Results Test 02/13/25 11:13 02/13/25 06:07 02/11/25 05:34 02/10/25 22:31 POC Glucose 143 mg/dl (70-106) White Blood Count 6.3 10^3/uL (4.4-10.8) Red Blood Count 4.60 10^6/uL (4.5-5.90) Hemoglobin 14.5 g/dL (13.5-17.5) Hematocrit 40.9 % (41.0-53.0) Mean Corpuscular Volume 88.9 fL (80.0-100.0) Mean Corpuscular Hemoglobin 31.5 pg (28.0-32.0) Mean Corpuscular Hemoglobin Concent 35.4 g/dL (32.0-36.0) Red Cell Distribution Width 12.2 % (11.8-14.3) Platelet Count 260 10^3/uL (140-450) Mean Platelet Volume 6.3 fL (6.9-10.8) Neutrophils (%) (Auto) 55.4 % (37.0-80.0) Lymphocytes (%) (Auto) 29.7 % (10.0-50.0) Monocytes (%) (Auto) 12.0 % (0.0-12.0) Eosinophils (%) (Auto) 2.1 % (0.0-7.0) Basophils (%) (Auto) 0.8 % (0.0-2.0) Neutrophils # (Auto) 3.5 10 ^3/uL (1.6-8.6) Lymphocytes # (Auto) 1.9 10 ^3/uL (0.4-5.4) Monocytes # (Auto) 0.8 10 ^3/uL (0-1.3) Eosinophils # (Auto) 0.1 10 ^3/uL (0-0.8) Basophils # (Auto) 0 10 ^3/uL (0-0.2) Nucleated Red Blood Cells 0.2 % Sodium Level 136 mmol/L (136-145) Potassium Level 3.9 mmol/L (3.5-5.1) Chloride Level 101 mmol/L (98-107) Carbon Dioxide Level 26 mmol/L (20-31) Anion Gap 9 (5-15) Blood Urea Nitrogen 13 mg/dL (9-23) Creatinine 0.95 mg/dL (0.700-1.30) Glomerular Filtration Rate Calc 108 mL/min (>90) BUN/Creatinine Ratio 13.7 (10.0-20.0) Serum Glucose 256 mg/dL (74-106) Calcium Level 9.5 mg/dL (8.7-10.4) Total Bilirubin 0.4 mg/dL (0.2-1.0) Aspartate Amino Transferase (AST) 13 U/L (13-40) Alanine Aminotransferase (ALT) 18 U/L (7-40) Alkaline Phosphatase 109 U/L (46-116) Total Protein 6.5 g/dL (5.7-8.2) Albumin 3.7 g/dL (3.2-4.8) Troponin I High Sensitivity < 3 ng/L (</=54) Hepatitis A IgM Antibody Negative Hepatitis B Surface Antigen Negative (Negative) Hepatitis B Core IgM Antibody Negative (Negative) Hepatitis C Antibody Negative (Negative) Lactic Acid Level 1.7 mmol/L (0.4-2.0) Test 02/10/25 20:08 02/10/25 19:52 Urine Color Light-yellow (Yellow) Urine Clarity Clear (Clear) Urine pH 6.0 (5.0-9.0) Urine Specific [place] 1.026 (1.001-1.035) Urine Protein 1+ (Negative) Urine Ketones Trace (Negative) Urine Blood 1+ /uL (Negative) Urine Nitrite Negative (Negative) Urine Bilirubin Negative (Negative) Urine Urobilinogen Normal mg/dL (Negative) Urine Leukocyte Esterase 3+ /uL (Negative) Urine RBC 31 /hpf (0 - 3) Urine Microscopic WBC 63 /HPF (0-3) Urine Squamous Epithelial Cells Few /hpf (<5) Urine Bacteria None seen /hpf (None Seen) Urine Yeast (Budding) Occasional /hpf (None Urine Glucose 4+ mg/dL (Normal) Urine Opiates Screen Neg (NEGATIVE) Urine Fentanyl Screen Neg (NEGATIVE) Urine Barbiturates Screen Neg (NEGATIVE) Urine Phencyclidine Screen Neg (NEGATIVE) Urine Amphetamines Screen Neg (NEGATIVE) Urine Benzodiazepines Screen Neg (NEGATIVE) Urine Cocaine Screen Neg (NEGATIVE) Urine Cannabinoids Screen Neg (NEGATIVE) Chlamydia trachomatis (DERRICK) Negative (Negative) Neisseria gonorrhoeae (DERRICK) Negative (Negative) Hemoglobin A1c 13.0 % A1C (<5.7) Treponema pallidum Antibody Non-reactive (Negative) HIV (1&2) Antibody Negative (Negative) Other Laboratory Tests 02/13/25 06:07 Brief Hx & Hospital Course: Patient is a 34-year-old male with past medical history of type 2 diabetes mellitus presented to the ED with a chief complaint of penile pain, swelling and discharge. Patient reported fell Saturday was only fine when he noticed a rash on his penis which progressed to swelling and pain. Patient reported noticing a discharged later of whitish yellow in color and was unable to retract the foreskin of his penis, had severe pain the penis and the suprapubic area, had associated fever with sweating but denied chills. Patient reports to be in a monogamous relationship with his fiancee and does not report her to be having any vaginal discharge. Past medical history: Type 2 diabetes mellitus diagnosed about 2 years ago but not on any medication Past surgical history: None Social history: Patient denies smoking, alcohol, drug use Hospital course: The patient was admitted at the line of emesis and UTI. The patient was given empiric antibiotic of Rocephin and doxycycline, local antibiotic (mupirocin) and IV fluid. Patient was also found to have hyperglycemia with HGB A1c more than 13, the patient was started on insulin Lantus, lispro and moderate sliding scale. Urology consulted, recommended circumcision outpatient basis. Culture from lesion on genital area showed Staphylococcus aureus sensitive to doxycycline. CT abdominopelvic and testicular ultrasound were performed which was normal. On 02/13/2025, the patient was feeling better since admission. Discharge plan discussed with the patient the patient discharged home. Discharge plan: (case discussed with Dr. Bermeo) Doxycycline 100 mg b.i.d. for 7 days Mupirocin local for genital area lesion Metformin 1000 g twice daily Follow up with the PCP within 1 week of the discharge Follow up with the discharge Clinic within 1 week of the discharge. Condition at Discharge: Good Final Diagnosis/Problems List Phimosis Complicated UTI Balanitis Urethritis Uncontrolled diabetes type 2 with hyperglycemia Obesity Discharge Disposition: Home Discharge Instruct/Medications Diet: Cardiac 2g Na,low cholest Activity: No Restrictions, As Tolerated Follow Up/Referral: Follow up with the PCP within 1 week of the discharge Follow up with with discharge Clinic within 1 week of the discharge. Medications: Metformin 1000 mg twice daily Doxycycline twice daily for 7 days Mupirocin local Discharge Statement: "Patient was advised to return to the ER or call 911 if any headaches, dizziness, shortness of breath, chest pain, abdominal pain, bleeding, fevers, or worsening of medical condition. Patient was counseled about treatment plan, medications, possible side effects, patientverbalized understanding. All questions were answered to the best of my ability. This discharge took greater then 30 minutes in planning, reviewing documentation, counseling the patient, and discussing with other team members." ASSESSMENT ASSESSMENT Assessment Phimosis Date of Service: Feb 13, 2025 Billing Provider: DADA BERMEO MD Common Visit Codes: 41238-DUX/OBS DISCH DAY >30min AME BURR RESDIENT Feb 13, 2025 14:43 DADA BERMEO MD Feb 15, 2025 21:56
[2025-02-13 15:11] VITALS: BP 147/104; PULSE 80; RESP 20; TEMP 97.4; O2SAT 97
[2025-02-16] MEDS ORDERED: MUPI2OIN2 EX (16:30)
[2025-02-16] MEDS ORDERED: METF-490 PO (16:30)
[2025-02-16] MEDS ORDERED: DOXY1CAP58 PO (16:30)
== END 2025-02-13 15:45 | disposition home or self-care (01) | DRG 463 ==
LOC: ER 19:14 → OVERFLOW 21:59 → WEST WING 02-11 11:58
PROVIDERS: ADMIT Student in an Organized Health Care Education/Training Program; ATTEND Student in an Organized Health Care Education/Training Program
DX: N34.2 Other urethritis (principal); E11.65 Type 2 diabetes mellitus with hyperglycemia; N47.1 Phimosis; N48.1 Balanitis; E66.812 Obesity, class 2; Z68.37 Body mass index [BMI] 37.0-37.9, adult; Z79.899 Other long term (current) drug therapy
CPT/HCPCS: 36415; 72192; 76870; 80048; 80053; 80074; 80307; 81001; 82962; 83036; 83605; 84484; 85025; 86703; 86780; 87077; 87086; 87186; 87205; 96365; 96372; G0378; J1815; J1885; J3490